=== PATIENT | male | born 1980 | race Caucasian/White ===

== ENCOUNTER 2017-01-27 19:50 | Emergency (ER) | payer MEDICAID | END 2017-01-27 23:46 | disposition left against medical advice (07) | LOC: D.ER 19:50 | DX: M54.6 Pain in thoracic spine (principal) ==

== ENCOUNTER 2017-08-16 05:43 | Day surgery (SDC) | payer MEDICAID ==
[~2017-08-16] VITALS: Ht 182.9 cm; Wt 80.7 kg
[~2017-08-16 05:43] MED LIST: KLONOPIN1 MG PO; LEXAPRO10 MG PO
[2017-08-16 08:29] VITALS: BP 108/61; Ht 182.9 cm; Wt 80.7 kg
[2017-08-16] MEDS ORDERED: HYDROCODON-ACE1 EAC7 PO (10:04)
[2017-08-16] MEDS ORDERED: HEALTHYLAX17 GM PO (10:04)
--- NOTE | 2017-08-16 14:34 | OP ---
PATIENT NAME: MARIANNA GAYTAN MEDICAL RECORD: [id number] :80 LOCATION:D.OPS ADMISSION DATE: SURGEON: JAKE YEUNG MD DATE OF OPERATION: 08/16/2017 SURGEON: Jake Yeung MD PREOPERATIVE DIAGNOSES: 1. Bleeding hemorrhoids. 2. Painless rectal bleeding. POSTOPERATIVE DIAGNOSES: 1. Bleeding hemorrhoids. 2. Painless rectal bleeding. PROCEDURE PERFORMED: 1. Rectal examination under anesthesia. 2. Internal hemorrhoid banding times 3. ANESTHESIA: General. COMPLICATIONS: None. SPECIMENS: None. Case was contaminated. OPERATIVE COURSE: After consent was obtained, the patient was taken to the operating room and placed in supine position on the operating table. Next, general anesthesia was given via endotracheal intubation. After a timeout was taken to confirm the correct patient and procedure, the patient was then placed into the lithotomy position. A 30 cc of local anesthetic were injected circumferentially for a perineal block. Digital rectal exam was performed. The patient with grade III internal hemorrhoids. The rectum was serially dilated using the [place] retractors. Hemorrhoid banding was then performed on the right posterior column, left lateral column, and the right anterior column. Once complete, the rectum was packed with Gelfo[place] and [place]. The end of the case, all needle and instrument counts were correct. No complications occurred. The patient was extubated and transferred to the PACU in stable condition. TRANSINT:[id number] Voice Confirmation ID: [id number] DOCUMENT ID: [id number] JAKE YEUNG MD at 1434 CC: [id number] DICTATION DATE: 08/16/17 1010 ASSISTANT STORE LEADER: 08/16/17 1059 [facility] [address] [place] [address]
== END 2017-08-16 12:10 | disposition home or self-care (01) ==
LOC: D.OPS 05:43 → D.PAN 09:30 → D.OPS 09:30 → D.PAN 10:00 → D.OPS 10:00
DX: K64.2 Third degree hemorrhoids (principal); Z01.812 Encounter for preprocedural laboratory examination